=== PATIENT | female | born 1960 | race Caucasian/White ===

== ENCOUNTER → 2016-08-09 09:12 | Outpatient (CLI) | payer MEDICARE ==
[2013-03-06 17:00] VITALS: BMI 42.4
[~2016-08-09 09:12] MED LIST: BUDEPRION XL150 MG PO; BYSTOLIC10 MG PO; CELEXA20 MG PO; ECOTRIN325 MG PO; ESTRACE2 MG PO; GLIPIZIDE10 MG PO; GLUCOPHAGE1000 MG PO; HYDROCHLOROTH12.5 M1 PO; JANUVIA100 MG PO; LANTUS SOL100 UNIT/1 SQ; LIPITOR40 MG PO; MOBIC7.5 MG PO; NORVASC5 MG PO; SYNTHROID75 MCG PO
[2016-08-09 10:41] LABS: ALBUMIN 3.7 g/dL (3.4-5.0); BILIRUBIN - DIRECT 0.12 mg/dL (0.00-0.30); BILIRUBIN - INDIRECT 0.28 mg/dL (0.00-1.00); BILIRUBIN - TOTAL 0.4 mg/dL (0.2-1.3); PROTEIN - SERUM 7.8 g/dL (6.4-8.2)
== END | disposition home or self-care (01) ==
LOC: D.US 09:12
PROVIDERS: Internal Medicine Gastroenterology
DX: K76.0 Fatty (change of) liver, not elsewhere classified (principal)

== ENCOUNTER → 2017-02-07 07:47 | Outpatient (CLI) | payer MEDICARE ==
[2013-03-06 17:00] VITALS: BMI 42.4
[2017-02-07 08:26] LABS: ALBUMIN 3.4 g/dL (3.4-5.0); BILIRUBIN - DIRECT 0.12 mg/dL (0.00-0.30); BILIRUBIN - INDIRECT 0.32 mg/dL (0.00-1.00); BILIRUBIN - TOTAL 0.44 mg/dL (0.2-1.3); PROTEIN - SERUM 7.2 g/dL (6.4-8.2)
== END | disposition home or self-care (01) ==
LOC: D.US 07:47
PROVIDERS: Internal Medicine Gastroenterology
DX: K76.0 Fatty (change of) liver, not elsewhere classified (principal)

== ENCOUNTER → 2017-04-05 19:00 | Outpatient (CLI) | payer MEDICARE ==
[2013-03-06 17:00] VITALS: BMI 42.4
[~2017-04-05 19:00] MED LIST changes: +K-TAB10 MEQ PO; +LEVEMIR100 U/M1 SC; +LYRICA50 MG PO; +PROTONIX40 MG PO
[2017-05-13 08:25] VITALS: BMI 42.1
== END | disposition home or self-care (01) ==
LOC: D.MAMMO 15:15
DX: Z12.31 Encounter for screening mammogram for malignant neoplasm of breast (principal)

== ENCOUNTER 2017-05-13 07:33 | Outpatient (CLI) | payer MEDICARE ==
[~2017-05-13] VITALS: Ht 157.5 cm; Wt 104.5 kg
--- NOTE | ~2017-05-13 | HEMODYNAMI ---
PATIENT:VASU JONES MEDICAL RECORD: [id number] : 62 LOCATION:[facility] ADMISSION DATE: 05/13/17 Generatedon:05/13/201712:02 Patient name: VASU JONES Patient #: [id number] SSN: : 1960 Date of study: 05/13/2017 Page: Of Hemodynamic Procedure Report Patient Data Patient Demographics Procedure consent was obtained First Name: VASU Gender: Female Last Name: KAREN : 1960 [facility] Initial: NASRIN Age: 56 year(s) Patient #: [id number] Race: Unknown Additional ID: [id number] Contact details Address: [address] [place] [address] [facility] State: [place] City: [facility] Zip code: [address] Admission Admission Data Admission Date: 05/13/2017 Admission Time: 7:33 Height (in.): 62 BSA: 2.03 (m2) Height (cm.): 157.48 BMI: 42.07 (kg/m2) Weight (lbs.): 230 Weight (kg.): 104.33 Lab Results Lab Result Date: 05/13/2017 Lab Result Time: 0:00 Biochemistry Name Units Result Min Max BUN mg/dl 9 --(*---)-- 7 18 Creatinine mg/dl 0.6 --(*---)-- 0.6 1.3 CBC Name Units Result Min Max Hemoglobin g/dl 12.3 *-(----)-- 13.5 17.5 Procedure Procedure Types Cath Procedure Diagnostic Procedure LHC LHC w/Coronaries Miscellaneous Procedures Moderate Sedation up to 15 minutes Procedure Description Procedure Date Procedure Date: 05/13/2017 Procedure Start Time: 11:51 Procedure End Time: 12:02 Procedure Staff Name Function Viet Chris MD Performing Physician Jacoby Ayala RT Monitor Katlin Arita RT Scrub Brenna Huang RN Nurse Kathy Reynoso RN Nurse Crystal Camarillo RT Scrub Bradford Perea RT Monitor Procedure Data Cath Procedure Fluoroscopy Diagnostic fluoroscopy Total fluoroscopy Time: 0.9 time: 0.9 min min Diagnostic fluoroscopy Total fluoroscopy dose: 369 dose: 369 mGy mGy Contrast Material Contrast Material Type Amount (ml) Isovue 300 58 Entry Location Entry Primary Successful Side Size Upsize Upsize Entry Closure Succes sful Closure Location (Fr) 1 (Fr) 2 (Fr) Remarks Device Remarks Femoral Right 5 Fr Exoseal artery Estimated blood loss: 5 ml Diagnostic catheters Device Type Used For End Catheter Placement Cordis 5Fr Pigtail Procedure Catheter (MP) Cordis 5Fr JL 4.0 Procedure Catheter (MP) Cordis 5Fr 3DRC Catheter Procedure (MP) Procedure Complications No complications Procedure Medications Medication Administration Route Dosage 0.9% NaCl I.V. 100 ml/hr Oxygen NC 2 l/min Lidocaine 2% added to field 20 Heparin Flush Bag added to field 2 bags (1000units/500ml NS) Versed I.V. 1.5 mg Fentanyl I.V. 75 mcg Versed I.V. 1.5 mg Fentanyl I.V. 75 mcg Hemodynamics Rest BSA: 2.03 (m2) HGB: 12.3 (g/dl) O2 Consumption: Estimated: 185.03 (ml/min) O2 Co nsumption indexed: Estimated:91.15 (ml/min/m) Heart Rate: 57 (bpm) Snapshots Pre Cath Intra NCS Post Cath Vital Signs Time Heart Resp SPO2 etCO2 NIBP (mmHg) Rhythm Pain Sedation Rate (ipm) (%) (mmHg) Status Level (bpm) 10:52:24 61 18 98 42.7 146/74(125) NSR 0 (11) 10(A) , No pain 10:57:15 58 23 100 41.9 145/70(119) NSR 0 (11) 10(A) , No pain 11:02:03 59 17 99 41.9 145/85(120) NSR 0 (11) 10(A) , No pain 11:06:48 60 20 99 42.6 143/81(120) NSR 0 (11) 10(A) , No pain 11:12:16 57 14 98 42.6 137/66(79) NSR 0 (11) 10(A) , No pain 11:17:35 54 15 96 41.9 131/73(92) NSR 0 (11) 10(A) , No pain 11:22:20 55 17 96 43.3 133/69(91) NSR 0 (11) 10(A) , No pain 11:27:05 61 16 97 44.8 132/77(100) NSR 0 (11) 10(A) , No pain 11:31:47 57 15 97 42.6 126/71(92) NSR 0 (11) 10(A) , No pain 11:36:30 58 15 97 44.1 130/73(101) NSR 0 (11) 10(A) , No pain 11:41:15 56 13 96 44.1 130/66(101) NSR 0 (11) 10(A) , No pain 11:45:58 58 17 96 42.6 131/76(97) NSR 0 (11) 10(A) , No pain 11:50:40 56 16 94 38.9 118/58(77) NSR 0 (11) 9(A) , No pain 11:56:06 62 15 94 45.6 146/68(122) NSR 0 (11) 9(A) , No pain 12:00:53 60 17 94 47.8 142/87(99) NSR 0 (11) 10(A) , No pain Medications Time Medication Route Dose Verified Delivered Reason Notes E ffectiveness by by 10:34:36 0.9% NaCl I.V. 100ml/hr Viet Chavez used for Dot Reynoso RN procedure 10:34:50 Oxygen NC 2 l/min Viet Chavez used for Dot Reynoso RN procedure 10:35:05 Lidocaine 2% added 20ml Viet Llanos for local to vial Dot Chris MD anesthetic field 10:35:29 Heparin Flush added 2 bags Viet Llanos used for Bag to Dot Chris MD procedure (1000units/500ml field NS) 11:50:21 Versed I.V. 1.5 mg Viet Ceja for Dot Huang RN sedation 11:50:26 Fentanyl I.V. 75 mcg Viet Ceja for Dot Huang RN sedation 11:54:31 Versed I.V. 1.5 mg Viet Ceja for Dot Huang RN sedation 11:54:34 Fentanyl I.V. 75 mcg Viet Huang RN sedation Procedure Log Time Note 10:31:22 Jacoby Ayala RT(R) sent for patient. Start room use. 10::24 Time tracking: Regular hours 10::28 Plan of Care:Hemodynamics will remain stable., Cardiac rhythm will remain stable., Comfort level will be maintained., Respiratory function will remain adequate., Patient/ family verbilizes understanding of procedure., Procedure tolerated without complication., Recovers from procedure without complications.. 10:31:36 H&P Date Dictated: 05/20/2017 Within 30 days and on chart., H&P Addendum completed by physician on day of procedure. (MUST COMPLETE FOR ALL OUTPATIENTS). 10:34:36 0.9% NaCl 100ml/hr I.V. was administered by Kathy Reynoso RN; used for procedure; 10:34:50 Oxygen 2 l/min NC was administered by Kathy Reynoso RN; used for procedure; 10:35:05 Lidocaine 2% 20ml vial added to field was administered by Viet Chris MD; for local anesthetic; 10:35:29 Heparin Flush Bag (1000units/500ml NS) 2 bags added to field was administered by Viet Chris MD; used for procedure; 10:44:33 Patient received from Pre/Post Procedure Room to CCL 1 Alert and oriented. Tansferred to table in Supine position. 10:44:34 Warm blankets applied, and william hugger turned on for patient comfort. 10:44:35 Correct patient and procedure confirmed by team. 10:44:36 Signed procedure consent form obtained from patient. 10:44:38 ECG and BP/O2 sat monitors applied to patient. 10:51:22 Vital chart was started 10:56:58 Baseline sample Acquired. 10:57:04 Rhythm: sinus bradycardia 10:57:05 Full Disclosure recording started 10:57:06 Pre-procedure instructions explained to patient. 10:57:07 Pre-op teaching completed and patient verbalized understanding. 10:57:09 Family in waiting room. 10:57:10 Patient NPO since Midnight. 10:57:13 Is the patient allergic to Iodine/contrast media? No. 10:57:14 Is patient on blood thinner?Yes 10:57:16 ACC The patient was administered the following blood thiners within the last 24 hours: ACCPlavix 10:57:18 Patient diabetic? Yes. 10:57:19 If diabetic: On Metformin? Yes 10:57:21 If on Metformin: Last Dose? 05/11/2017 10:57:25 Patient not . Patient is over age 55. 10:57:27 Previous problem with sedation/anesthesia? No ? 10:57:28 Snore? Yes 10:57:30 Sleep apnea? No 10:57:31 Deviated septum? No 10:57:32 Opens mouth fully? Yes 10:57:33 Sticks out tongue? Yes 10:57:35 Airway obstruction? No ? 10:57:38 Dentures? Yes IN 10:57:45 Pre procedure: right dorsailis pedis pulse 1+ Palpable, but thready & weak; easily obliterated 10:57:47 Patient pain scale 0/10 ?. 10:57:51 IV patent on arrival in left forearm with 0.9% NaCl at KVO. 10:57:54 Lab results completed and on chart. 10:58:23 Right groin area was prepped with chlora-prep and draped in sterile fashion 10:58:24 Alarms reviewed by R. N. 10:58:24 Sharps counted by scrub and verified by R.N. 10:58:45 Use device set Femoral Dx 10:58:46 Tegaderm 4 x 4 opened to sterile field. 10:58:47 Acist Hand Control opened to sterile field. 10:58:49 Acist Manifold opened to sterile field. 10:58:50 Acist Syringe opened to sterile field. 10:58:50 Bag Decanter opened to sterile field. 10:58:50 Medline Cath Pack opened to sterile field. 10:58:55 Terumo 5Fr [place] Sheath opened to sterile field. 10:58:56 [facility] Michael 260cm J .035 wire opened to sterile field. 10:58:58 Diagnostic Infinity 5Fr Multipack catheter opened to sterile field. 11:08:11 Physician paged 11:12:42 Patient Height : 62 inches 11:12:44 Patient Weight : 230 lbs 11:13:37 Lab Result : Hemoglobin 12.3 g/dl 11:13:37 Lab Result : Creatinine 0.6 mg/dl 11:13:37 Lab Result : BUN 9 mg/dl 11:40:24 Case delayed due to Physician working in 3. 11:43:49 Katlin Arita RT(R) was relieved by Bradford Perea RT(R) as monitoring person 11:44:35 Jacoby Ayala RT(R) was relieved out by Crystal Camarillo RT(R) as scrub person. 11:45:14 Procedure delayed due to: Physician seeing pts on the floor. 11:49:21 Physician arrived :49: --------ALL STOP TIME OUT------ 11:49:22 Final Timeout: patient, procedure, and site verified with staff and physician. All members of the team are in agreement. 11:49:24 Right groin site verified by team. 11:49:27 Physical assessment completed. ASA score P 2 - A patient with mild systemic disease as per Viet Chris MD. 11:49:31 Sedation plan: IV Moderate Sedation Medication:Versed, Fentanyl 11:50:21 Versed 1.5 mg I.V. was administered by Brenna Huang RN; for sedation; 11:50:26 Fentanyl 75 mcg I.V. was administered by Brenna Huang RN; for sedation; 11:51:55 Procedure started. 11:51:58 Local anesthetic to right femoral artery with Lidocaine 2% by Viet Chris MD.INITIAL ACCESS ONLY 11:52:23 A 5 Fr sheath was inserted into the Right Femoral artery 11:52:49 A Cordis 5Fr Pigtail Catheter (MP) was advanced over the wire and used for Procedure. 11:53:11 Injector settings: Ml/sec: 10, Volume: 20, 11:53:16 EF : 50 % 11:53:17 LV gram done using TANNER 11:53:21 Catheter exchanged over wire. 11:53:41 A Cordis 5Fr JL 4.0 Catheter (MP) was advanced over the wire and used for Procedure. 11:54:06 LCA angiography performed. 11:54:31 Versed 1.5 mg I.V. was administered by Brenna Huang RN; for sedation; 11:54:34 Fentanyl 75 mcg I.V. was administered by Brenna Huang RN; for sedation; 11:54:53 Catheter exchanged over wire. 11:54:58 A Cordis 5Fr 3DRC Catheter (MP) was advanced over the wire and used for Procedure. 11:55:26 RCA angiography performed. 11:55:27 Catheter removed. 11:55:35 Cordis 5Fr Exoseal opened to sterile field. 11:55:44 Sheath removed intact; hemostasis achieved with Exoseal to the Right Femoral artery. 11:55:47 Procedure ended.(Physican Out) 12:00:12 Fluoroscopy time 00.90 minutes. 12:00:18 Fluoroscopy dose: 369 mGy 12:00:18 Flurop Dose total: 369 12:00:22 Contrast amount:Isovue 300 58ml. 12:00:24 Sharps counted by scrub and verified by R.N. 12:00:38 Insertion/operative site no bleeding no hematoma. 12:00:43 Post-op/insertion site Right Femoral artery dressed using a 4 x 4 and Tegaderm. 12:00:48 Post right femoral artery:stable, soft, clean and dry 12:00:56 Post Procedure Pulses reassessed and unchanged 12:01:04 Post-procedure physical assessment completed. ASA score P 2 - A patient with mild systemic disease as per Viet Chris MD. 12:01:06 Post procedure rhythm: unchanged. 12:01:09 Estimated blood loss: 5 ml 12:01:11 Post procedure instruction explained to patient.Patient verbalizes understanding. 12:01:11 Patient needs reinforcement of post procedure teaching. 12:01:53 Procedure and supply charges have been captured, reviewed, submitted and are correct. 12:01:55 Procedure Complication : No complications 12:01:57 Vital chart was stopped 12:01:57 See physician's report for complete and final results. 12:01:59 Report given to Pre/Post Procedure Room. 12:02:02 Patient transfered to Pre/Post Procedure Room with Stretcher. 12:02:05 Procedure ended. 12:02:05 Full Disclosure recording stopped 12:02:10 End room use (Document Last) Device Usage Item Name Manufacture Quantity Catalog Hospital Part Current Minimal Lo t# / Number Charge Number Stock Stock Serial# Code Tegaderm 4 3M 1 [id number] [id number] 366465 5 x 4 Acist Hand Acist 1 60407 809697 552399 571026 5 Kaprica Security Acist Acist 1 14544 272488 269231 416638 5 Biocrates [employer] Inc Acist Acist 1 13233 190974 861093 553671 20 Syringe Medical Systems Inc Bag Microtek 1 2002S 488526 42636 722427 5 Decanter [employer] Inc. Medline Cardinal 1 [id number] 829237 98838 837779 5 Cath Pack Health Terumo 5Fr Terumo 1 [id number] 885206 943750 799600 [address] [place] [address] [facility] 1 544287 161980 850640 450575 30 260cm J .035 wire Diagnostic Cardinal 1 [id number] [id number] 12699 655442 30 Infinity Health 5Fr Multipack catheter Cordis 5Fr Cardinal 1 385080 5 Pigtail Health Catheter (MP) Cordis 5Fr Cardinal 1 926100 5 JL 4.0 Health Catheter (MP) Cordis 5Fr Cardinal 1 753169 5 3DRC Health Catheter (MP) Cordis 5Fr Cardinal 1 EX500 686212 378967 773215 10 [facility] Workhint Signature Audit [place] Stage Time Signature Unsigned Intra-Procedure 05/13/2017 Bradford Perea 12:02:28 PM RT(R) Signatures Monitor : Jacoby Ayala RT Signature : Date : Time : Monitor : Bradford Perea RT Signature : Date : Time : [id number] [place] [address]
[~2017-05-13 07:33] MED LIST changes: -K-TAB10 MEQ PO; -LEVEMIR100 U/M1 SC; -LYRICA50 MG PO; -PROTONIX40 MG PO
[2017-05-13] MEDS ORDERED: PROTONIX40 MG PO (08:15)
[2017-05-13] MEDS ORDERED: LIPITOR40 MG PO (08:16)
[2017-05-13] MEDS ORDERED: LYRICA50 MG PO (08:16)
[2017-05-13] MEDS ORDERED: LEVEMIR100 U/M1 SC (08:17)
[2017-05-13] MEDS ORDERED: K-TAB10 MEQ PO (08:19)
[2017-05-13 08:25] VITALS: BP 160/70; Ht 157.5 cm; Wt 104.5 kg
[2017-05-13 08:36] LABS: BASOPHILS 0.4 % (0-2); EOSINOPHILS 1.9 % (0-7); HEMATOCRIT 38.4 % (36.0-48.0); HEMOGLOBIN 12.3 g/dL (12-16); IMMATURE GRANULOCYTES 0.1 % (0-5); LYMPHOCYTES 28.4 % (15-50); MCV 84.2 fL (80.0-100.0); MEAN PLATELET VOLUME 10.8 fL (7.4-10.4); MONOCYTES 7.6 % (2-11); NEUTROPHILS 61.6 % (40-80); PLATELET COUNT 219 10x3/uL (130-400); RBC 4.56 10x6/uL (4.00-5.40); RDW 14.6 % (11.5-14.5); WBC 7.3 10x3/uL (4.8-10.8)
[2017-05-13 08:53] LABS: CALC OSMOLALITY 286 mosm/kg (275-300); CALCIUM 8.8 mg/dL (8.5-10.1); CARBON DIOXIDE 27.5 mmol/L (21.0-32.0); CHLORIDE - SERUM 102 mmol/L (98-107); CREATININE - SERUM 0.6 mg/dL (0.6-1.3); POTASSIUM - SERUM 3.7 mmol/L (3.5-5.1); SODIUM 141 mmol/L (136-145); UREA NITROGEN 9 mg/dL (7-18); eGFR NON AFRICAN AMERICAN > 90 mL/min (90-120)
[2017-05-13 08:55] LABS: GLUCOSE 217 mg/dL (74-106)
--- NOTE | 2017-05-13 12:16 | NUR ---
1210 RECEIVED PT FROM TROUBLE SHOOTER. PT DENIES ANY C/O PAIN OR NAUSEA. 5 FR EXOSEAL DRESSING CDI TO RIGHT GROIN. AREA IS SOFT AND NONTENDER. PEDAL PULSES PALPABLE. RR IS EVEN AND UNLABORED, ON O2 AT 2 LPM VIA NC. NSR WITH RATE OF 64. BP 125/65. IV PATENT AND INFUSING PER ORDERS FAMILY AT BEDSIDE, CALL LIGHT IN REACH.
--- NOTE | 2017-05-13 12:38 | NUR ---
PT RESTING WITH EYES CLOSED, AWAKENS EASILY. DRESSING TO RIGHT GROIN IS CDI, AREA IS SOFT AND NONTENDER. PEDAL PULSES PALPABLE. PT DENIES ANY C/O. SINUS BRADYCARDIA, RATE 57. FAMILY AT BEDSIDE, CALL LIGHT IN REACH.
--- NOTE | 2017-05-13 13:09 | NUR ---
1300 PO FLUIDS SERVED. PT DENIES ANY C/O. VSS. RIGHT GROIN STABLE WITH NO BLEEDING OR HEMATOMA NOTED. PEDAL PULSES PALPABLE. AT BEDSIDE. WILL CONTINUE TO MONITOR.
--- NOTE | 2017-05-13 13:29 | NUR ---
1315 DRESSING TO RIGHT GROIN IS CDI, AREA IS SOFT AND NONTENDER. PT DENIES ANY C/O. PEDAL PULSES PALPABLE, CAP REFILL IS BRISK. AT BEDSIDE, CALL LIGHT IN REACH.
--- NOTE | 2017-05-13 13:50 | NUR ---
RIGHT GROIN IS STABLE WTIH NO BLEEDING OR HEMATOMA NOTED. HOB ELEVATED. PT HAS ELLEN SANDWICH AND PO FLUIDS WITH NO C/O NAUSEA. PEDAL PULSES PALPABLE. AT BEDSIDE, CALL LIGHT IN REACH.
--- NOTE | 2017-05-13 14:14 | OP ---
PATIENT NAME: VASU JONES MEDICAL RECORD: [id number] :62 LOCATION:D.CAT ADMISSION DATE: SURGEON: PITO RODRIGUEZ MD DATE OF OPERATION: 05/13/2017 PROCEDURES: 1. Left heart catheterization. 2. Selective coronary angiography. 3. Left ventriculogram. INDICATION: Chest pain, abnormal nuclear stress test. DESCRIPTION OF PROCEDURE: After informed consent was obtained and after a detailed explanation of the risks, benefits as well as alternative therapies, the patient elected to proceed with angiogram and heart catheterization. The right femoral area was prepped and draped in normal sterile fashion. Right femoral artery was cannulated via modified Seldinger technique with placement of 5-Mohawk sheath. All catheters exchanged through this sheath. FINDINGS: Left ventriculogram was performed in standard 30-degree TANNER view, reveals good cardiac wall motion throughout all segments. Overall ejection fraction estimated at 60%. SELECTIVE CORONARY ANGIOGRAPHY: Left main, left anterior descending, left circumflex, right coronary are all smooth-walled vessels with no angiographic evidence of coronary artery disease. OVERALL IMPRESSION: 1. No angiographic evidence of coronary artery disease. 2. Normal left heart pressures. 3. Normal left ventricular systolic function. Chest pain is noncardiac in etiology. No further cardiac workup needs to be ascertained. TRANSINT:[id number] Voice Confirmation ID: [id number] DOCUMENT ID: [id number] PITO RODRIGUEZ MD at 1414 CC: [id number] DICTATION DATE: 05/13/17 1159 PAPER STEAMER: 05/13/17 1242 [address] [place] [address]
--- NOTE | 2017-05-13 14:17 | NUR ---
1405 IV DC'D WITH CATH INTACT. PT IS DRESSING FOR DC TO HOME. PT HAS AMBULATED TO THE BATHROOM AND VOIDED QS. AWAITING DR JENNIFER YOU. DRESSING TO RIGHT GROIN REMAINS CDI, AREA SOFT AND NONTENDER. PEDAL PULSES PALPABLE.
--- NOTE | 2017-05-13 14:19 | NUR ---
1415 DR RODRIGUEZ HAS ROUNDED ON PT. PT DENIES ANY C/O. DRESSING TO RIGHT GROIN IS CDI, AREA IS SOFT AND NONTENDER. DC INSTRUCTIONS REVIEWED WITH PT WHO VERBALIZES UNDERSTADNING. PT ESCORTED TO PRIVATE AUTO VIA WC BY NURSE WITH DRIVING HER HOME.
== END 2017-05-13 14:15 | disposition home or self-care (01) ==
LOC: D.CATH 07:33
PROVIDERS: Internal Medicine Interventional Cardiology
DX: I20.9 Angina pectoris, unspecified (principal); I10 Essential (primary) hypertension; E78.5 Hyperlipidemia, unspecified; R94.31 Abnormal electrocardiogram [ECG] [EKG]; E11.9 Type 2 diabetes mellitus without complications; Z01.812 Encounter for preprocedural laboratory examination

== ENCOUNTER → 2017-05-30 07:37 | Outpatient (CLI) | payer MEDICARE ==
[2017-05-13 08:25] VITALS: BMI 42.1
[~2017-05-30 07:37] MED LIST changes: +K-TAB10 MEQ PO; +LEVEMIR100 U/M1 SC; +LYRICA50 MG PO; +PROTONIX40 MG PO
== END | disposition home or self-care (01) ==
LOC: D.RAD 05-26 10:30
DX: K21.9 Gastro-esophageal reflux disease without esophagitis (principal)

== ENCOUNTER → 2017-08-16 08:43 | Outpatient (CLI) | payer OTHER ==
[2017-05-13 08:25] VITALS: BMI 42.1
[2017-08-16 09:47] LABS: ALBUMIN 3.5 g/dL (3.4-5.0); BILIRUBIN - DIRECT 0.16 mg/dL (0.00-0.30); BILIRUBIN - INDIRECT 0.34 mg/dL (0.00-1.00); BILIRUBIN - TOTAL 0.5 mg/dL (0.2-1.3); PROTEIN - SERUM 6.7 g/dL (6.4-8.2)
== END | disposition home or self-care (01) ==
LOC: D.US 08-11 09:30
PROVIDERS: Internal Medicine Gastroenterology
DX: K76.0 Fatty (change of) liver, not elsewhere classified (principal)

== ENCOUNTER → 2018-02-14 09:34 | Outpatient (CLI) | payer OTHER ==
[2017-05-13 08:25] VITALS: BMI 42.1
[2018-02-14 10:16] LABS: ALBUMIN 3.4 g/dL (3.4-5.0); BILIRUBIN - DIRECT 0.1 mg/dL (0.00-0.30); BILIRUBIN - INDIRECT 0.2 mg/dL (0.00-1.00); BILIRUBIN - TOTAL 0.3 mg/dL (0.2-1.3); PROTEIN - SERUM 7.2 g/dL (6.4-8.2)
== END | disposition home or self-care (01) ==
LOC: D.US 09:30
PROVIDERS: Internal Medicine Gastroenterology
DX: K76.0 Fatty (change of) liver, not elsewhere classified (principal)

== ENCOUNTER → 2018-05-22 08:00 | Outpatient (CLI) | payer OTHER ==
[2017-05-13 08:25] VITALS: BMI 42.1
== END | disposition home or self-care (01) ==
LOC: D.MAMMO 05-02 08:15
DX: Z12.31 Encounter for screening mammogram for malignant neoplasm of breast (principal)

== ENCOUNTER → 2018-07-25 06:30 | Outpatient (CLI) | payer OTHER ==
[2017-05-13 08:25] VITALS: BMI 42.1
[2018-07-25 07:38] LABS: ALBUMIN 3.5 g/dL (3.4-5.0); BILIRUBIN - DIRECT 0.11 mg/dL (0.00-0.30); BILIRUBIN - INDIRECT 0.28 mg/dL (0.00-1.00); BILIRUBIN - TOTAL 0.39 mg/dL (0.2-1.3); PROTEIN - SERUM 7.6 g/dL (6.4-8.2)
== END | disposition home or self-care (01) ==
LOC: D.US 06:30
PROVIDERS: Internal Medicine Gastroenterology
DX: K76.0 Fatty (change of) liver, not elsewhere classified (principal)

== ENCOUNTER → 2019-01-26 07:13 | Outpatient (CLI) | payer OTHER ==
[2017-05-13 08:25] VITALS: BMI 42.1
[2019-01-26 07:41] LABS: ALBUMIN 3.7 g/dL (3.4-5.0); BILIRUBIN - DIRECT 0.16 mg/dL (0.00-0.30); BILIRUBIN - INDIRECT 0.38 mg/dL (0.00-1.00); BILIRUBIN - TOTAL 0.54 mg/dL (0.2-1.3); PROTEIN - SERUM 7.7 g/dL (6.4-8.2)
== END | disposition home or self-care (01) ==
LOC: D.LAB 07:13 → D.US 08:00
PROVIDERS: ATTEND Internal Medicine Gastroenterology
DX: K76.0 Fatty (change of) liver, not elsewhere classified (principal)

== ENCOUNTER → 2019-05-22 20:19 | Outpatient (CLI) | payer OTHER ==
[2017-05-13 08:25] VITALS: BMI 42.1
== END | disposition home or self-care (01) ==
LOC: D.MAMMO 08:00
PROVIDERS: ATTEND Family Medicine
DX: Z12.31 Encounter for screening mammogram for malignant neoplasm of breast (principal)

== ENCOUNTER → 2019-06-04 10:11 | Outpatient (CLI) | payer OTHER ==
[2017-05-13 08:25] VITALS: BMI 42.1
--- NOTE | ~2019-06-04 | ST ---
PATIENT:VASU JONES MEDICAL RECORD: [id number] SEX: F LOCATION:[facility] ORDER #: ADMISSION DATE: 06/04/19 AGE OF PATIENT: 59 REFERRING PHYSICIAN: INTERPRETING PHYSICIAN: PITO RODRIGUEZ MD DATE OF SERVICE: 06/04/2019 PROCEDURE: Nuclear stress test. INDICATION: Angina, shortness of breath, hypertension, hyperlipidemia. She was exercised on standard Lexiscan protocol with 33 mCi of sestamibi injected at peak stress, 11 mCi were used previously for rest images. FINDINGS: Gated SPECT reveals a preserved ejection fraction at 66% with good wall motioning and thickening and brightening throughout all segments. SPECT imaging: Cardiolite was used as myocardial perfusion agent. There is reversibility anteriorly, apically, and laterally. Anteriorly and apically, the reversibility is moderate. Laterally the reversibility is mild. There is a large amount of myocardium between the 2 defects. OVERALL IMPRESSION: This is a high risk abnormal nuclear stress test with reversible ischemia anteriorly, apically, and laterally suggestive of multivessel coronary artery disease. TRANSINT:[id number] Voice Confirmation ID: [id number] DOCUMENT ID: [id number] PITO RODRIGUEZ MD CC: THEODORE GONZALEZ [id number] DICTATION DATE: 06/05/19 1156 WRAP KNITTING MACHINE OPERATOR: 06/06/19 0032 DEP CLI 06/04/19 [address] [place] [address]
--- NOTE | ~2019-06-04 | EC ---
PATIENT:VASU JONES DATE OF SERVICE: 06/04/19 SEX: F MEDICAL RECORD: [id number] DATE OF : 62 [facility] AGE OF PATIENT: 59 ADMISSION DATE: 06/04/19 REFERRING PHYSICIAN: INTERPRETING PHYSICIAN: PITO CHRIS MD ECHOCARDIOGRAM REPORT ECHO CHARGES 4 ECHO COMPLETE Date: 06/04/19 CLINICAL DIAGNOSIS: CP/ANGINA/SOB/GRIER H/O HTN ECHOCARDIOGRAPHIC MEASUREMENTS (adult normal given) AC root (d.<3.7cm) 2.6 cm LV Septum d (<1.2 cm> 1.1 cm Valve Excursion 1.8 cm LV Septum (systole) 1.8 cm Left Atria (s.<4.0cm> 4.4 cm LVPW d(<1.2cm) 12 cm RV (d.<2.3cm) 3.4 cm LVPW (sytole) 1.7 cm LV diastole(<5.6CM) 5.2 cm MV E-F(>70mm/sec) cm LV systole 3.2 cm LVOT Diameter 1.6 cm MV exc.(>10mm) cm Est.ejection fraction (50-75%) % DOPPLER: LVIT cm/sec A 64.0 cm/sec E 70.0 cm/sec LA cm/sec RVSP 34.0 mmHg LVOT 85.0 cm/sec AOP1/2T m/s Asc. Ao 149 cm/sec RVOT 58.0 cm/sec RA cm/sec PA 85.0 cm/sec AV Gradient Peak 8.9 mmHg AV Mean 4.8 mmHg AV Area 1.1 cm MV Gradient Peak 3.8 mmHg MV Mean 1.3 mmHg MV Area cm COMMENTS: OP - HC Graphic Illustrator: 1 HEAVEN HUGO Machine Lead Burner: 1 Dr. Chris TAPE# PACS Pericardial Effusion N DATE OF SERVICE: ECHOCARDIOGRAM FINDINGS: 1. Left ventricular chamber size is within normal limits. Left ventricular systolic function is normal. Overall ejection fraction estimated at 60%. 2. Left atrium is enlarged at 4.4 cm. Right atrium and right ventricle chamber sizes are as well mildly dilated. 3. Valvular structures have normal structure and motion. ECHOCARDIOGRAM REPORT [id number] VASU JONES 4. Doppler interrogation reveals mild mitral regurgitation, no other valvular insufficiency or stenosis. Pulmonary systolic pressure is estimated at 34 mmHg. 5. No evidence of pericardial effusion or left ventricular thrombus. TRANSINT:[id number] Voice Confirmation ID: [id number] DOCUMENT ID: [id number] PITO CHRIS MD CC: [id number] DICTATION DATE: 06/05/19 1141 SEED BUYER: 06/05/19 1249 DEP CLI 06/04/19 [id number] [place] [id number]
== END | disposition home or self-care (01) ==
LOC: D.HCCARDIO 10:11 → D.HCCECHO 11:00
PROVIDERS: ATTEND Internal Medicine Interventional Cardiology
DX: I20.9 Angina pectoris, unspecified (principal)

== ENCOUNTER 2019-06-11 07:04 | Outpatient (CLI) | payer OTHER ==
[~2019-06-11] VITALS: Ht 157.5 cm; Wt 93.2 kg
--- NOTE | ~2019-06-11 | HEMODYNAMI ---
PATIENT:VASU JONES MEDICAL RECORD: [id number] : 62 LOCATION:[facility] ADMISSION DATE: 06/11/19 Generatedon:06/11/201910:00 Patient name: VASU JONES Patient #: [id number] : 1960 Date of study: 06/11/2019 Page: Of Hemodynamic Procedure Report Patient Data Patient Demographics Procedure consent was obtained First Name: VASU Gender: Female Last Name: KAREN : 1960 [facility] Initial: NASRIN Age: 59 year(s) Patient #: [id number] Race: Unknown SSN: [id number] Additional ID: [id number] Contact details Address: [address] [place] [address] [facility] State: [place] City: [facility] Zip code: [address] Past Medical History Allergies: No known allergies Admission Admission Data Admission Date: 06/11/2019 Admission Time: 7:04 Arrival Date: 06/11/2019 Arrival Time: 0:00 Admit Source: Other Insurance Payor: Private health insurance [facility] #: [id number] Height (in.): 63 BSA: 1.93 (m2) Height (cm.): 160.02 BMI: 35.43 (kg/m2) Weight (lbs.): 200 Weight (kg.): 90.72 Lab Results Lab Result Date: 06/11/2019 Lab Result Time: 0:00 Biochemistry Name Units Result Min Max BUN mg/dl 10 --(-*--)-- 7 18 Creatinine mg/dl 0.6 --(*---)-- 0.6 1.3 CBC Name Units Result Min Max Hemoglobin g/dl 11.3 *-(----)-- 13.5 17.5 Procedure Procedure Types Cath Procedure Diagnostic Procedure LHC LHC w/Coronaries Sedation Charges Moderate Sedation up to 15 minutes Procedure Description Procedure Date Procedure Date: 06/11/2019 Procedure Start Time: 9:51 Procedure End Time: 9:56 Procedure Staff Name Function Viet Chris MD Performing Physician Eileen Orantes RT Monitor Anna Thompson RT Scrub Tyson Hand RN Nurse Procedure Data Cath Procedure Fluoroscopy Diagnostic fluoroscopy Total fluoroscopy Time: 0.8 time: 0.8 min min Diagnostic fluoroscopy Total fluoroscopy dose: 209 dose: 209 mGy mGy Contrast Material Contrast Material Type Amount (ml) Isovue 300 40 Entry Location Entry Primary Successful Side Size Upsize Upsize Entry Closure Succes sful Closure Location (Fr) 1 (Fr) 2 (Fr) Remarks Device Remarks Femoral Right 5 Fr Exoseal artery Estimated blood loss: 5 ml Diagnostic catheters Device Type Used For End Catheter Placement MULTIPACK Pigtail 5 Fr Procedure catheter MULTIPACK JL 4.0 5Fr Procedure catheter MULTIPACK 3DRC 5Fr Procedure catheter Procedure Complications No complications Procedure Medications Medication Administration Route Dosage 0.9% NaCl I.V. 100 ml/hr Oxygen etCO2 Nasal cannula 2 l/min Heparin Flush Bag added to field 2 bags (1000units/500ml NS) Lidocaine 2% added to field 20 Versed I.V. 2 mg Fentanyl I.V. 50 mcg Hemodynamics Rest BSA: 1.93 (m2) HGB: 11.3 (g/dl) O2 Consumption: Estimated: 183.31 (ml/min) O2 Co nsumption indexed: Estimated:94.98 (ml/min/m) Heart Rate: 69 (bpm) Snapshots Pre Cath Intra NCS Post Cath Vital Signs Time Heart Resp SPO2 etCO2 NIBP (mmHg) Rhythm Pain Sedation Rate (ipm) (%) (mmHg) Status Level (bpm) 9:34:26 69 12 96 0 143/73(103) NSR 0 (11) 10(A) , No pain 9:38:40 63 12 94 47.8 135/78(111) NSR 0 (11) 10(A) , No pain 9:42:54 65 14 96 47.8 137/73(102) NSR 0 (11) 10(A) , No pain 9:47:08 64 14 97 47.8 133/70(100) NSR 0 (11) 10(A) , No pain 9:52:05 67 17 98 44.8 129/73(102) NSR 0 (11) 9(A) , No pain 9:56:15 70 15 98 42.6 141/77(98) NSR 0 (11) 9(A) , No pain Medications Time Medication Route Dose Verified Delivered Reason Notes Effe ctiveness by by 9:35:19 0.9% NaCl I.V. 100 Tyson Tyson Per ml/hr Yazan Hand physician RN RN 9:35:32 Oxygen etCO2 2 Tyson Tyson for low 02 Nasal l/min Lorigan Yazan sats cannula RN RN 9:35:41 Heparin Flush added 2 Tyson Tyson used for Bag to bags Lorigan Yazan procedure (1000units/500ml field RN RN NS) 9:35:51 Lidocaine 2% added 20ml Tyson Tyson for local to vial Lorigan Lorigan anesthetic field RN RN 9:48:28 Versed I.V. 2 mg Tyson Tyson for Lorigan Lorigan sedation RN RN 9:48:37 Fentanyl I.V. 50 Tyson Tyson for mcg Lorigan Lorigan sedation RN pad machine operator Log Time Note 8:51:08 Arrival Date: 06/11/2019 12:00:00 AM 8:51:09 Admit Source: Other 8:51:20 Insurance Payor : Private health insurance 8:51:43 Patient Height : 63 inches 8:51:48 Patient Weight : 200 lbs 8:57:42 Lab Result : BUN 10 mg/dl 8:57:42 Lab Result : Creatinine 0.6 mg/dl 8:57:42 Lab Result : Hemoglobin 11.3 g/dl 8:58:31 Procedure Status Elective Heart Cath (OP). 8:58:34 Brenna Huang RN sent for patient. Start room use. 8:58:56 Time tracking: Regular hours (M-F 7:00 - 5:00) 9:03:01 1) 90+ Normal kidney functon but urine findings or structural abnormalities or genetic trait point to kidney disease. 9:03:04 Maximum allowable contrast dose (3.7 X eGFR X 0.75)249 ml. 9:33:06 Plan of Care:Hemodynamics will remain stable., Cardiac rhythm will remain stable., Comfort level will be maintained., Respiratory function will remain adequate., Patient/ family verbilizes understanding of procedure., Procedure tolerated without complication., Recovers from procedure without complications.. 9:33:11 Patient received from Pre/Post Procedure Room to CCL 2 Alert and oriented. Tansferred to table in Supine position. 9:33:14 Signed procedure consent form obtained from patient. 9:33:15 Warm blankets applied, and william hugger turned on for patient comfort. 9:33:16 Correct patient and procedure confirmed by team. 9:33:16 ECG and BP/O2 sat monitors applied to patient. 9:33:17 Vital chart was started 9:33:18 Baseline sample Acquired. 9:33:24 Rhythm: sinus rhythm 9:33:27 Full Disclosure recording started 9:34:20 H&P Date Dictated: 05/14/2019 Within 30 days and on chart., H&P Addendum completed by physician on day of procedure. (MUST COMPLETE FOR ALL OUTPATIENTS). 9:34:21 Pre-procedure instructions explained to patient. 9:34:22 Family in waiting room. 9:34:24 Patient NPO since Midnight. 9:34:39 Patient allergic to No known allergies 9:34:43 Is the patient allergic to Iodine/contrast media? No. 9:34:45 Was the patient premedicated? Yes 9:34:46 Is patient on blood thinner?No 9:34:48 Patient diabetic? Yes. 9:34:50 If diabetic: On Metformin? Yes 9:34:53 If on Metformin: Last Dose? 06/10/2019 9:34:58 Snore? No 9:35:00 Sleep apnea? No 9:35:07 Dentures? Yes uppers in tight 9:35:12 Patient pain scale 0/10 ?. 9:35:19 0.9% NaCl 100 ml/hr I.V. was administered by Tyson Hand RN; Per physician; Verbal order read back and verified. 9:35:19 IV patent on arrival in right forearm with 0.9% NaCl at O. 9:35:23 Lab results completed and on chart. 9:35:32 Oxygen 2 l/min etCO2 Nasal cannula was administered by Tyson Hand RN; for low 02 sats; Verbal order read back and verified. 9:35:41 Heparin Flush Bag (1000units/500ml NS) 2 bags added to field was administered by Tyson Hand RN; used for procedure; Verbal order read back and verified. 9:35:51 Lidocaine 2% 20ml vial added to field was administered by Tyson Lorigan RN; for local anesthetic; Verbal order read back and verified. 9:36:15 Right groin area was prepped with chlora-prep and draped in sterile fashion 9:36:16 Alarms reviewed by R. N. 9:36:17 Sharps counted by scrub and verified by R.N. 9:37:35 Stress Test: yes; abnormal Multivessel 9:37:39 Risk of Mortality: 1.3 9:37:43 Risk of blood transfusion: 5.9 9:37:46 Risk of CORNEL: 9.3 9:37:48 Physician paged 9:46:58 Physician arrived 9:46:58 --------ALL STOP TIME OUT------ 9:46:59 Final Timeout: patient, procedure, and site verified with staff and physician. All members of the team are in agreement. 9:47:14 Right groin site verified by team. 9:47:19 Fire Safety Assessment: A--An alcohol-based skin anteseptic being used preoperatively., C--Open oxygen or nitrous oxide is being used., D--An ESU, laser, or fiber-optic light is being used. 9:47:26 Physical assessment completed. ASA score P 2 - A patient with mild systemic disease as per Viet Chris MD. 9:47:33 Sedation plan: IV Moderate Sedation Medication:Versed, Fentanyl 9:47:44 Use device set Femoral Dx 9:47:46 ACIST Syringe (32091) opened to sterile field. 9:47:46 Bag Decanter (2002) opened to sterile field. 9:47:47 Medline Cath Pack ([id number]) opened to sterile field. 9:47:49 ACIST Hand Control (15630) opened to sterile field. 9:47:49 ACIST Manifold (98378) opened to sterile field. 9:47:50 DIAGNOSTIC Multipack 5Fr catheter set ([id number]) opened to sterile field. 9:47:51 Tegaderm 4 x 4 (1626W) opened to sterile field. 9:47:54 SHEATH 5FR Sutton (EOH990) opened to sterile field. 9:47:55 EMERALD Guide Wire (964-928) opened to sterile field. 9:48:28 Versed 2 mg I.V. was administered by Tyson Hand RN; for sedation; Verbal order read back and verified. 9:48:37 Fentanyl 50 mcg I.V. was administered by Tyson Hand RN; for sedation; Verbal order read back and verified. 9:51:06 Procedure started. 9:51:17 Local anesthetic to right femoral artery with Lidocaine 2% by Viet Chris MD.INITIAL ACCESS ONLY 9:51:29 A 5 Fr sheath was inserted into the Right Femoral artery 9:52:33 A MULTIPACK Pigtail 5 Fr catheter was advanced over the wire and used for Procedure. 9:52:37 LV angiography performed. 9:52:52 EF : 40 % 9:52:54 Catheter removed. 9:53:07 A MULTIPACK JL 4.0 5Fr catheter was advanced over the wire and used for Procedure. 9:54:01 LCA angiography performed. 9:54:03 Catheter removed. 9:54:09 A MULTIPACK 3DRC 5Fr catheter was advanced over the wire and used for Procedure. 9:54:42 RCA angiography performed. 9:54:44 Catheter removed. 9:54:46 EXOSEAL 5Fr (EX500) opened to sterile field. 9:55:07 Sheath removed intact; hemostasis achieved with Exoseal to the Right Femoral artery. 9:55:12 Procedure ended.(Physican Out) 9:55:24 Fluoroscopy time 00.80 minutes. 9:55:27 Flurop Dose total: 209 9:55:27 Fluoroscopy dose: 209 mGy 9:55:32 Dose Area Product 16044 mGy/cm. 9:55:36 Contrast amount:Isovue 300 40ml. 9:55:38 Maximum allowable dose exceeded? No. 9:55:53 Insertion/operative site no bleeding no hematoma. 9:55:56 Post-op/insertion site Right Femoral artery dressed using a 4 x 4 and Tegaderm. 9:55:58 Post Procedure Pulses reassessed and unchanged 9:56:02 Post-procedure physical assessment completed. ASA score P 2 - A patient with mild systemic disease as per Viet Chris MD. 9:56:06 Post procedure rhythm: unchanged. 9:56:09 Estimated blood loss: 5 ml 9:56:11 Post procedure instruction explained to patient.Patient verbalizes understanding. 9:56:21 Procedure type changed to Cath procedure, Diagnostic procedure, LHC, LHC w/Coronaries, Sedation Charges, Moderate Sedation up to 15 minutes 9:56:22 Procedure and supply charges have been captured, reviewed, submitted and are correct. 9:56:43 Procedure Complication : No complications 9:56:46 Vital chart was stopped 9:56:48 [facility] Findings: mild to moderate CAD (<70%) 9:56:51 See physician's report for complete and final results. 9:56:52 Report given to Pre/Post Procedure Room. 9:56:55 Patient transfered to Pre/Post Procedure Room with Stretcher. 9:56:57 Procedure ended. 9:56:57 Full Disclosure recording stopped 9:57:02 End room use (Document Last) Device Usage Item Name Manufacture Quantity Catalog Hospital Part Current Minimal L ot# / Number Charge Number Stock Stock Serial# Code ACIST Acist 1 27611 722495 608518 183277 20 Syringe Medical (10599) Systems Inc Bag Microtek 1 989661 68810 733644 5 Decanter Medical Inc. () Medline Medline 1 [id number] 262728 44170 024948 5 Cath Pack ([id number]) ACIST Hand Acist 1 39674 364827 688512 283257 5 Control Medical (04055) Systems Inc ACIST Acist 1 70900 463238 189911 127155 5 Manifold Medical (36390) Systems Inc DIAGNOSTIC Cardinal 1 [id number] 796545 94887 114338 30 Multipack Health 5Fr catheter set ([id number]) Tegaderm 4 3M 1 1626W 182579 921628 345043 5 x 4 (1626W) SHEATH 5FR Terumo 1 DVX917 340633 179540 781304 5 Sutton (VFD230) EMERALD Cardinal 1 502-455 310323 113020 998762 5 Guide Wire Health (502-220) MULTIPACK Cardinal 1 385341 5 Pigtail 5 Health Fr catheter MULTIPACK Cardinal 1 038422 5 JL 4.0 5Fr Health catheter MULTIPACK Cardinal 1 693344 5 3DRC 5Fr Health catheter EXOSEAL 5Fr Cardinal 1 EX500 719744 646731 700378 10 (EX500) Health Signature Audit [place] Stage Time Signature Unsigned Intra-Procedure 06/11/2019 Eileen Orantes 9:59:28 AM RT(R) Intra-Procedure 06/11/2019 Tyson 10:00:32 AM Lorigan RN Intra-Procedure 06/11/2019 Viet Chris 10:00:54 AM MD Signatures Performing Physician : Signature : Viet Chris MD Date : Time : Monitor : Eileen Costaur Signature : RT Date : Time : Nurse : Tyson Lorigan Signature : RN Date : Time : [facility] [address] [place] [address]
[2019-06-11] MEDS ORDERED: BUPROPION XL300 MG PO (07:20)
[2019-06-11] MEDS ORDERED: CELEXA40 MG PO (07:21)
[2019-06-11] MEDS ORDERED: NEURONTIN 300300 MG PO (07:24)
[2019-06-11 07:53] VITALS: BP 145/71; Ht 157.5 cm; Wt 93.2 kg
[2019-06-11 07:59] LABS: BASOPHILS 0.5 % (0-2); EOSINOPHILS 1.2 % (0-7); HEMOGLOBIN 11.3 g/dL (12-16); IMMATURE GRANULOCYTES 0.2 % (0-5); LYMPHOCYTES 28.9 % (15-50); MCHC 31.4 g/dL (31.0-37.0); MCV 82.8 fL (80.0-100.0); MEAN PLATELET VOLUME 10.1 fL (7.4-10.4); MONOCYTES 8.4 % (2-11); NEUTROPHILS 60.8 % (40-80); RBC 4.35 10x6/uL (4.00-5.40); RDW 14.8 % (11.5-14.5); WBC 5.7 10x3/uL (4.8-10.8)
[2019-06-11 08:06] LABS: PLATELET COUNT 270 10x3/uL (130-400)
[2019-06-11 08:12] LABS: CALC OSMOLALITY 289 mosm/kg (275-300); CALCIUM 9.5 mg/dL (8.5-10.1); CARBON DIOXIDE 27.7 mmol/L (21.0-32.0); CHLORIDE - SERUM 101 mmol/L (98-107); CREATININE - SERUM 0.6 mg/dL (0.6-1.3); POTASSIUM - SERUM 3.8 mmol/L (3.5-5.1); SODIUM 139 mmol/L (136-145); UREA NITROGEN 10 mg/dL (7-18); eGFR NON AFRICAN AMERICAN > 90 mL/min (90-120)
[2019-06-11 08:13] LABS: GLUCOSE 334 mg/dL (74-106)
--- NOTE | 2019-06-11 10:11 | NUR ---
REC TO ROOM ON STRETCHER SUPINE, MONITORING INITIATED. R GROIN CDI, SOFT, NO BLEEDING OR HEMATOMA. PPP. CALL LIGHT IN REACH, RAILS UP ON STRETCHER, AT BEDSIDE.
--- NOTE | 2019-06-11 10:26 | NUR ---
R GROIN CDI, SOFT. NO BLEEDING/HEMATOMA. HR 62, NSR. NIBP 137/65. O2 SAT 97% ON 2LNC.
--- NOTE | 2019-06-11 10:42 | NUR ---
R GROIN CDI/SOFT. NO BLEEDING/HEMATOMA. PPP. HR 61, NSR. BP 126/66, SAT 97% ON 2LNC.
--- NOTE | 2019-06-11 11:10 | NUR ---
R GROIN CDI, SOFT, NO BLEEDING/HEMATOMA. PPP.
--- NOTE | 2019-06-11 11:35 | NUR ---
HOB RAISED, O2 REMOVED. PROVIDED SANDWICH AND DIET SODA. R GROIN SOFT, NONTENDER, NO BLEEDING/HEMATOMA. PPP.
--- NOTE | 2019-06-11 11:50 | NUR ---
TOLERATED PO INTAKE, NO NAUSEA. IV REMOVED, TIP INTACT. MONITORING DISCONTINUED. R GROIN REMAINS SOFT, NONTENDER. NO BLEEDING/HEMATOMA. PT DRESSING WITH 'S ASSISTANCE.
--- NOTE | 2019-06-11 12:05 | NUR ---
IN WC, ROLLED TO RESTROOM. VOIDED WITHOUT DIFFICULTY.
--- NOTE | 2019-06-11 12:10 | NUR ---
DC HOME VIA PRIVATE CAR WITH . ALL DC TEACHING DONE BEFORE LEFT ROOM PRIOR TO 1205. PT AND VERBALIZE UNDERSTANDING.
--- NOTE | 2019-06-14 15:25 | OP ---
PATIENT NAME: VASU JONES MEDICAL RECORD: [id number] :62 LOCATION:D.CAT ADMISSION DATE: SURGEON: PITO RODRIGUEZ MD DATE OF OPERATION: 06/11/2019 PROCEDURE: Cardiac catheterization. INDICATION: Angina, abnormal nuclear stress test. PROCEDURE: After informed consent was obtained and after detailed explanation of risks, benefits as well as alternative therapies, the patient elected to proceed with angiogram and heart catheterization. The right femoral area was prepped and draped in normal sterile fashion. Right femoral artery was cannulated via modified Seldinger technique with placement of 5-Sami sheath. All catheters exchanged through this sheath. FINDINGS: The left ventriculogram was performed in standard 30-degree TANNER view reveals mildly depressed ejection fraction is lower limits of normal at 50%. SELECTIVE CORONARY ANGIOGRAPHY: Left main, left anterior descending, left circumflex, and right coronary artery are all smooth-walled vessels with no angiographic evidence of coronary artery disease. OVERALL IMPRESSION: 1. No angiographic evidence of coronary artery disease. 2. Normal left heart pressures. 3. Normal left ventricular systolic function. TRANSINT:[id number] Voice Confirmation ID: [id number] DOCUMENT ID: [id number] PITO RODRIGUEZ MD at 1528 CC: [id number] DICTATION DATE: 06/11/19 1004 DRAFTER ASSISTANT: 06/11/19 1529 [facility] CLI 06/11/19 [facility] [address] [place] [address]
== END 2019-06-11 12:10 | disposition home or self-care (01) ==
LOC: D.CATH 07:04
PROVIDERS: ATTEND Internal Medicine Interventional Cardiology
DX: I20.9 Angina pectoris, unspecified (principal); R94.39 Abnormal result of other cardiovascular function study; E11.9 Type 2 diabetes mellitus without complications; Z79.84 Long term (current) use of oral hypoglycemic drugs; E78.5 Hyperlipidemia, unspecified; I10 Essential (primary) hypertension; R07.9 Chest pain, unspecified; R06.02 Shortness of breath

== ENCOUNTER → 2019-07-16 07:30 | Outpatient (CLI) | payer OTHER ==
[2019-06-11 07:53] VITALS: BMI 37.6
[~2019-07-16 07:30] MED LIST changes: +BUPROPION XL300 MG PO; +CELEXA40 MG PO; +NEURONTIN 300300 MG PO
[2019-07-16 08:16] LABS: ALBUMIN 3.2 g/dL (3.4-5.0); BILIRUBIN - DIRECT 0.11 mg/dL (0.00-0.30); BILIRUBIN - INDIRECT 0.25 mg/dL (0.00-1.00); BILIRUBIN - TOTAL 0.36 mg/dL (0.2-1.3); PROTEIN - SERUM 7.2 g/dL (6.4-8.2)
== END | disposition home or self-care (01) ==
LOC: D.LAB 07:30 → D.US 08:00
PROVIDERS: ATTEND Internal Medicine Gastroenterology
DX: K76.0 Fatty (change of) liver, not elsewhere classified (principal)